=== PATIENT | male | born 1970 | race African-American/Black ===

== ENCOUNTER 2016-10-11 12:59 | Emergency (ER) | payer OTHER ==
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
[~2016-10-11 12:59] MED LIST: BACTRIM DS TABL1 TA1 PO; PREDNISONE PO
== END 2016-10-11 15:10 | disposition home or self-care (01) ==
LOC: CFTX 12:59
DX: S61.412A Laceration without foreign body of left hand, initial encounter (principal); S13.4XXA Sprain of ligaments of cervical spine, initial encounter; S23.3XXA Sprain of ligaments of thoracic spine, initial encounter; S33.5XXA Sprain of ligaments of lumbar spine, initial encounter; F17.210 Nicotine dependence, cigarettes, uncomplicated; V49.40XA Driver injured in collision with unspecified motor vehicles in traffic accident, initial encounter; Y93.89 Activity, other specified; Y92.410 Unspecified street and highway as the place of occurrence of the external cause
CPT/HCPCS: 12001; 70450; 72072; 72100; 72125; 73030; 99284

== ENCOUNTER 2016-10-23 20:26 | Emergency (ER) | payer OTHER ==
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
== END 2016-10-23 22:42 | disposition home or self-care (01) ==
LOC: CFTX 20:26
DX: M51.17 Intervertebral disc disorders with radiculopathy, lumbosacral region (principal); F17.210 Nicotine dependence, cigarettes, uncomplicated
CPT/HCPCS: 72131; 99284